=== PATIENT | female | born 1980 | race Caucasian/White ===

== ENCOUNTER 2016-07-12 08:48 | Emergency (ER) | payer OTHER ==
[2016-07-12 08:48] VITALS: BMI 29.5
[2016-07-12 09:15] VITALS: TEMP 98.2; O2SAT 98
--- NOTE | 2016-07-12 09:33 | C.PDOC ---
History Of Present Illness 35 yr old female presents to the ER stating for the past few weeks she feels like she is unable to take a deep breath, sensations of breathlessness, chest tightness and lung pain. Patient reports she is under a lot of stress with her 6 kids, school and various other things. Patient denies fever, nausea, vomiting , vision changes, headache, weakness or numbness. Time Seen by Provider: 07/12/16 09:20 Chief Complaint (Nursing): Flu-like Symptoms History Per: Patient History/Exam Limitations: no limitations Onset/Duration Of Symptoms: Persistent (few weeks) Current Symptoms Are (Timing): Still Present Sick Contacts (Context): None Past Medical History Reviewed: Historical Data, Nursing Documentation, Vital Signs Vital Signs: Last Vital Signs Temp 98.2 F 07/12/16 09:14 Pulse 69 07/12/16 10:14 Resp 18 07/12/16 10:14 BP 124/72 07/12/16 10:14 Pulse Ox 98 07/12/16 10:34 - Medical History PMH: Migraine - [facility] Procedures MONITORING NOS (02/05/14) INFLUENZA VACCINATION (02/05/14) MANUAL ASSIST DELIV NEC (02/05/14) OTHER SKIN & SUBQ I D (04/19/14) Family History: States: No Known Family Hx - Social History Hx Tobacco Use: Yes Hx Alcohol Use: No Hx Substance Use: No - Immunization History Hx Tetanus Toxoid Vaccination: Yes Review Of Systems Except As Marked, All Systems Reviewed And Found Negative. Constitutional: Negative for: Fever Eyes: Negative for: Vision Change Respiratory: Positive for: Other (Sensations of breathlessness. Can't take a deep breath. Chest tightness. Lung pain. ) Gastrointestinal: Negative for: Nausea, Vomiting Neurological: Negative for: Weakness, Numbness, Headache Physical Exam - Physical Exam Appears: Non-toxic, No Acute Distress Skin: Warm, Dry, No Rash Head: Atraumatic, Normacephalic Oral Mucosa: Moist Chest: Symmetrical, No Tenderness Cardiovascular: Rhythm Regular, No Murmur Respiratory: Normal Breath Sounds, No Rales, No Rhonchi, No Stridor, No Wheezing Gastrointestinal/Abdominal: Normal Exam, Soft, No Tenderness, No Guarding, No Rebound Back: Normal Inspection, No CVA Tenderness Extremity: Normal ROM, No Swelling Neurological/Psych: Oriented x3, Normal Speech, Normal Motor ED Course And Treatment ECG: Interpreted By Me ECG Rhythm: Sinus Rhythm ECG Interpretation: Normal Rate From EC (BPM) O2 Sat by Pulse Oximetry: 98 (RA) - Radiology CXR: Interpreted by Me, Viewed By Me CXR Interpretation: Yes: No Acute Disease Medical Decision Making Medical Decision Making: PLAN: * CXR * EKG Normal results discussed with pt, no indication of acs pe or tad Discussed anxiety as cause with pt who was thinking the same as she has multiple social problems Pt advised to make an apt at [facility] for further evaluation and treatment Disposition Counseled Patient/Family Regarding: Diagnosis, Need For Followup - Disposition Referrals: Clinic,Med Surg [Primary Care Provider] - Disposition: HOME/ ROUTINE Disposition Time: 10:05 Condition: GOOD Additional Instructions: Make apt with "[facility]" or you PCP Instructions: Generalized Anxiety Disorder (ED) Forms: Work Excuse - Clinical Impression Clinical Impression: Anxiety - Scribe Statement The provider has reviewed the documentation as recorded by the Scribe Naz Coronado Provider Attestation: All medical record entries made by the Scribe were at my direction and personally dictated by me. I have reviewed the chart and agree that the record accurately reflects my personal performance of the history, physical exam, medical decision making, and the department course for this patient. I have also personally directed, reviewed, and agree with the discharge instructions and disposition.
--- NOTE | 2016-07-12 09:49 | RAD ---
HISTORY: cp COMPARISON: 05/02/2013 TECHNIQUE: Chest PA and lateral FINDINGS: LUNGS: No active pulmonary disease. PLEURA: No significant pleural effusion identified. No pneumothorax apparent. CARDIOVASCULAR: Normal. OSSEOUS STRUCTURES: No significant abnormalities. VISUALIZED UPPER ABDOMEN: Normal. OTHER FINDINGS: None. IMPRESSION: No active disease. No interval pathology noted
[2016-07-12 10:15] VITALS: BP 124/72; PULSE 69; RESP 18
== END 2016-07-12 10:15 | disposition home or self-care (01) ==
LOC: SUPCPDRO 08:48 → C.ER 08:48
DX: F41.9 Anxiety disorder, unspecified (principal)

== ENCOUNTER 2016-07-25 14:59 | Emergency (ER) | payer OTHER ==
[2016-07-25 15:00] VITALS: BMI 29.5
[2016-07-25 15:42] VITALS: PULSE 110; RESP 20; TEMP 98.5; O2SAT 99
--- NOTE | 2016-07-25 16:21 | C.PDOC ---
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 Patient reports she had a anxiety attack today at school which prompted the ED visit. Patient states she recently had few episodes in increasing severity. Patient describes it as the whole world closing in on her, darkness and gets tearful. Patient states there is a lot of things going on in nursing school and has a lot of kids at home which she has to deal with alone. Patient states she has tried getting an appointment at the [facility] across the street but had no luck. Patient denies fever, chills, chest pain, SOB, nausea, vomiting, abdominal pain, headache, weakness or numbness. 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), Persistent Current Symptoms Are (Timing): Gone Associated Symptoms: Anxiety Past Medical History Reviewed: Historical Data, Nursing Documentation, Vital Signs Vital Signs: Last Vital Signs Temp 98.5 F 07/25/16 15:40 Pulse 110 H 07/25/16 15:40 Resp 20 07/25/16 15:40 BP Pulse Ox 99 07/25/16 16:21 - Medical History PMH: Migraine - [facility] Procedures MONITORING NOS (02/05/14) INFLUENZA VACCINATION (02/05/14) MANUAL ASSIST DELIV NEC (02/05/14) OTHER SKIN & SUBQ I D (04/19/14) Family History: States: No Known Family Hx - Social History Hx Tobacco Use: Yes Hx Alcohol Use: No Hx Substance Use: No - Immunization History Hx Tetanus Toxoid Vaccination: Yes Hx Influenza Vaccination: No Hx Pneumococcal Vaccination: No Review Of Systems Except As Marked, All Systems Reviewed And Found Negative. Constitutional: Negative for: Fever, Chills Cardiovascular: Negative for: Chest Pain Respiratory: Negative for: Shortness of Breath Gastrointestinal: Negative for: Nausea, Vomiting, Abdominal Pain Neurological: Negative for: Weakness, Numbness, Headache Physical Exam - Physical Exam Appears: Well, Non-toxic, No Acute Distress Skin: Warm, Dry, No Rash Head: No Atraumatic, No Normacephalic Oral Mucosa: Moist Throat: Normal, No Erythema, No Exudate Chest: Symmetrical, No Tenderness Cardiovascular: Rhythm Regular, No Murmur Respiratory: Normal Breath Sounds, No Rales, No Rhonchi, No Stridor, No Wheezing Gastrointestinal/Abdominal: Normal Exam, Soft, No Tenderness, No Guarding, No Rebound Extremity: Normal ROM, No Swelling Neurological/Psych: Oriented x3, Normal Speech, Normal Motor ED Course And Treatment O2 Sat by Pulse Oximetry: 99 Progress Note: Crisis was informed about angi patient and they tried to get the patient an appointment with [facility] but none available. Patient is put in touch with the manager strategic development of [facility]. Disposition Counseled Patient/Family Regarding: Diagnosis, Need For Followup, Rx Given - Disposition Disposition: HOME/ ROUTINE Disposition Time: 16:17 Condition: GOOD Additional Instructions: Call [phone] and speak with Jose E, the manager strategic development. He will be able to assist. Take Ativan for anxiety as needed. Do not drive or attempt to take classes under the influence of Ativan. Prescriptions: Lorazepam [Ativan] 1 tab PO BID PRN #6 tab PRN Reason: Anxiety Instructions: Anxiety (ED) Forms: General Discharge Instructions, Work Excuse - POA Present On Arrival: None - Clinical Impression Clinical Impression: Anxiety - Scribe Statement The provider has reviewed the documentation as recorded by the Scribe Naz Coronado Provider Attestation: All medical record entries made by the Scribe were at my direction and personally dictated by me. I have reviewed the chart and agree that the record accurately reflects my personal performance of the history, physical exam, medical decision making, and the department course for this patient. I have also personally directed, reviewed, and agree with the discharge instructions and disposition.
== END 2016-07-25 16:27 | disposition home or self-care (01) ==
LOC: C.ER 14:59
DX: F41.9 Anxiety disorder, unspecified (principal)

== ENCOUNTER 2016-12-01 19:30 | Emergency (ER) | payer OTHER ==
[2016-12-01 19:30] VITALS: BMI 29.5
[2016-12-01 19:44] VITALS: BP 117/83; PULSE 73; RESP 20; TEMP 97.6; O2SAT 99
[2016-12-01] MEDS ORDERED: Tramadol 25 mg PO STA (20:17)
--- NOTE | 2016-12-01 20:24 | C.PDOC ---
History Of Present Illness 36 y/o female c/o pain to her right elbow, radiating to right fingers, with associated tingling sensation for 2 weeks. Patient states pain originally started in right shoulder but is now localized to right elbow area. Denies trauma, weakness, numbness. Notes she took Tylenol w/ no relief. Patient also states she uses her hands a lot at work. Time Seen by Provider: 12/01/16 20:04 Chief Complaint (Nursing): Upper Extremity Problem/Injury History Per: Patient History/Exam Limitations: no limitations Onset/Duration Of Symptoms: Days Current Symptoms Are (Timing): Still Present Quality: "Pain" Exacerbating Factor(s): Movement Recent travel outside of the [place]: No Past Medical History Reviewed: Historical Data, Nursing Documentation, Vital Signs Vital Signs: Last Vital Signs Temp 97.6 F 12/01/16 19:40 Pulse 73 12/01/16 19:40 Resp 20 12/01/16 19:40 BP 117/83 12/01/16 19:40 Pulse Ox 99 12/01/16 20:35 - Medical History PMH: Migraine - [facility] Procedures MONITORING NOS (02/05/14) INFLUENZA VACCINATION (02/05/14) MANUAL ASSIST DELIV NEC (02/05/14) OTHER SKIN & SUBQ I D (04/19/14) Family History: States: Unknown Family Hx - Social History Hx Tobacco Use: Yes Hx Alcohol Use: No Hx Substance Use: No - Immunization History Hx Tetanus Toxoid Vaccination: Yes Hx Influenza Vaccination: No Hx Pneumococcal Vaccination: No Review Of Systems Except As Marked, All Systems Reviewed And Found Negative. Constitutional: Negative for: Fever, Chills Musculoskeletal: Positive for: Other (Elbow Pain, Right) Skin: Negative for: Rash Neurological: Negative for: Weakness, Numbness Physical Exam - Physical Exam Appears: Non-toxic, No Acute Distress Skin: Normal Color, Warm, Dry Head: Atraumatic, Normacephalic Extremity: Capillary Refill (< 2 sec.), No Deformity, No Swelling, Other (Pain on ROM of right elbow. Skin intact: no erythema or effusion of joint. ) Extremity: Bilateral: Normal Color And Temperature Pulses: Left Radial: Normal, Right Radial: Normal Neurological/Psych: Oriented x3, Normal Motor, Normal Sensation ED Course And Treatment O2 Sat by Pulse Oximetry: 99 (RA) Pulse Ox Interpretation: Normal Progress Note: Treated with Tramadol PO. Sling placed for support. On reassessment, patient is resting comfortably, and is in no acute distress. Patient instructed to follow up with clinic/PMD within 1-2 days. Disposition Counseled Patient/Family Regarding: Diagnosis, Need For Followup, Rx Given - Disposition Referrals: Ankit Daily MD [Staff Provider] - Disposition: HOME/ ROUTINE Disposition Time: 20:21 Condition: STABLE Additional Instructions: Please follow up with PMD Take tramadol PO Return to ER if worse Prescriptions: traMADol [Ultram] 50 mg PO TID #14 tab Instructions: Tendinitis (ED) Forms: [employer] (Syrian) - Clinical Impression Clinical Impression: Tendinitis of elbow - PA / [employer] / Resident Statement MD/DO has reviewed & agrees with the documentation as recorded. - Scribe Statement The provider has reviewed the documentation as recorded by the Scribe SM All medical record entries made by the Scribe were at my direction and personally dictated by me. I have reviewed the chart and agree that the record accurately reflects my personal performance of the history, physical exam, medical decision making, and the department course for this patient. I have also personally directed, reviewed, and agree with the discharge instructions and disposition.
== END 2016-12-01 20:34 | disposition home or self-care (01) ==
LOC: C.ER 19:30
DX: M77.9 Enthesopathy, unspecified (principal)

== ENCOUNTER 2017-04-11 12:56 | Emergency (ER) | payer OTHER ==
[2017-04-11 12:56] VITALS: BMI 29.5
[2017-04-11 14:24] LABS: BASO # 0.1 K/uL (0.0-0.2); EOS # 0.1 K/uL (0.0-0.7); EOS % 0.8 % (0.0-4.0); HEMATOCRIT 37.7 % (34.0-47.0); LYMPH % 40.2 % (20.0-40.0); MEAN CELL VOLUME 87.1 fL (81.0-99.0); MEAN CORPUSCULAR HEMOGLOBIN 29.1 pg (27.0-31.0); MEAN CORPUSCULAR HGB CONC 33.4 g/dL (33.0-37.0); MEAN PLATELET VOLUME 8.6 fL (7.2-11.7); MONO # 0.4 K/uL (0.0-0.8); MONO % 5.4 % (0.0-10.0); RED CELL DISTRIBUTION WIDTH 13.9 % (11.5-14.5); WHITE BLOOD COUNT 7.5 K/uL (4.8-10.8)
[2017-04-11 14:25] LABS: RBC URINE < 1 /hpf (0-3); URINE BILIRUBIN NEGATIVE (NEGATIVE); URINE BLOOD NEGATIVE (NEGATIVE); URINE COLOR Yellow (YELLOW); URINE GLUCOSE (UA) NORMAL (Normal); URINE KETONE NEGATIVE (NEGATIVE); URINE LEUKOCYTE ESTERASE NEG Leu/uL (Negative); URINE PROTEIN NEGATIVE (NEGATIVE); URINE UROBILINOGEN NORMAL mg/dL (0.2-1.0); WBC URINE 1 /hpf (0-5)
--- NOTE | 2017-04-11 14:28 | C.PDOC ---
History Of Present Illness 36 y/o female with history of acid reflux presents to ED with complaints of chest discomfort when taking deep breaths and acid reflux since 6am this morning. Patient reports x1 episode of vomiting and denies chest pressure, fever , chills, cough, headache, sob or any other complaints at this time. Only discomfort with inhalation Time Seen by Provider: 04/11/17 13:41 Chief Complaint (Nursing): Chest Pain History Per: Patient History/Exam Limitations: no limitations Onset/Duration Of Symptoms: Hrs Current Symptoms Are (Timing): Still Present Quality: Pressure Exacerbating Factors: Deep Breathing Past Medical History Reviewed: Historical Data, Nursing Documentation, Vital Signs Vital Signs: Last Vital Signs Temp 97.9 F 04/11/17 17:07 Pulse 82 04/11/17 17:07 Resp 18 04/11/17 17:07 BP 117/67 04/11/17 17:07 Pulse Ox 98 04/11/17 17:07 - Medical History PMH: Migraine Surgical History: No Surg Hx - [facility] Procedures MONITORING NOS (02/05/14) INFLUENZA VACCINATION (02/05/14) MANUAL ASSIST DELIV NEC (02/05/14) OTHER SKIN & SUBQ I D (04/19/14) Family History: States: No Known Family Hx - Social History Hx Tobacco Use: Yes Hx Alcohol Use: No Hx Substance Use: No - Immunization History Hx Tetanus Toxoid Vaccination: Yes Hx Influenza Vaccination: No Hx Pneumococcal Vaccination: No Review Of Systems Except As Marked, All Systems Reviewed And Found Negative. Cardiovascular: Positive for: Other (Chest discomfort, Acid reflux) Physical Exam - Physical Exam Appears: Non-toxic, No Acute Distress Skin: Normal Color, Warm, Dry, No Rash Head: Atraumatic, Normacephalic Eye(s): bilateral: Normal Inspection Oral Mucosa: Moist Throat: Normal, No Erythema, No Exudate, No Drooling Neck: Supple Chest: Symmetrical Cardiovascular: Rhythm Regular Respiratory: Normal Breath Sounds, No Rales, No Rhonchi, No Wheezing Gastrointestinal/Abdominal: Soft, No Tenderness, No Guarding, No Rebound Extremity: Normal ROM, Capillary Refill (<2 seconds) Neurological/Psych: Oriented x3, Normal Speech Gait: Steady ED Course And Treatment - Laboratory Results Result Diagrams: 04/11/17 14:19 04/11/17 14:19 ECG: Interpreted By Me, Viewed By Me ECG Rhythm: Sinus Rhythm Interpretation Of ECG: Normal Intervals, Normal access. No ST/T wave changes Rate From EC (BPM ) O2 Sat by Pulse Oximetry: 98 (RA) Pulse Ox Interpretation: Normal Progress Note: On re evaluation patient feels better and is requesting prescription because Prilosec is not improving symptoms. Patient will be discharged with Nexium prescription and isntructed to follow up with PMD in 2 days. Patient advised to return to ED if symptoms worsen Reevaluation Time: 16:20 Reassessment Condition: Improved Medical Decision Making Medical Decision Making: Plan: ECG, CXR, Blood work, Protonix ordered Disposition Counseled Patient/Family Regarding: Studies Performed, Diagnosis, Need For Followup, Rx Given - Disposition Referrals: [facility] at [facility] [Outside] Disposition: HOME/ ROUTINE Disposition Time: 16:48 Condition: STABLE Additional Instructions: follow up with medical clinic or your doctor in 2 days call to make an appointment take medications as prescribed return to hospital if symptoms worsens or progress Prescriptions: Esomeprazole Magnesium [Nexium] 40 mg PO DAILY #20 ecc Instructions: Chest Pain (ED), Abdominal Pain (ED) Forms: General Discharge Instructions, [facility] (Iraqi), Work Excuse - Clinical Impression Clinical Impression: Chest pain, Abdominal pain - Scribe Statement The provider has reviewed the documentation as recorded by the Hossein Graves All medical record entries made by the Manuelibfavian were at my direction and personally dictated by me. I have reviewed the chart and agree that the record accurately reflects my personal performance of the history, physical exam, medical decision making, and the department course for this patient. I have also personally directed, reviewed, and agree with the discharge instructions and disposition.
[2017-04-11 14:40] LABS: ALB/GLOB RATIO 1.5 (1.0-2.1); ALKALINE PHOSPHATASE 60 U/L (38-126); ALT/SGPT 121 U/L (9-52); AST/SGOT 47 U/L (14-36); BILIRUBIN,TOTAL 0.6 mg/dL (0.2-1.3); BLOOD UREA NITROGEN 12 mg/dL (7-17); CALCIUM 8.6 mg/dl (8.6-10.4); CARBON DIOXIDE 22 mmol/L (22-30); CHLORIDE 101 mmol/L (98-107); GFR AFRICAN-AMERICAN > 60; GLUCOSE,RANDOM 85 mg/dL (65-105); POTASSIUM 4.1 mmol/L (3.6-5.2); SODIUM 134 mmol/L (132-148); TOTAL PROTEIN 7.2 g/dL (6.3-8.3)
--- NOTE | 2017-04-11 15:10 | RAD ---
PROCEDURE: CHEST RADIOGRAPH, 1 VIEW HISTORY: chest pain COMPARISON: 07/12/2016 FINDINGS: LUNGS: Clear. PLEURA: No pneumothorax or pleural fluid seen. CARDIOVASCULAR: Normal. OSSEOUS STRUCTURES: No significant abnormalities. VISUALIZED UPPER ABDOMEN: Normal. OTHER FINDINGS: None. IMPRESSION: No active disease.
[2017-04-11 15:33] VITALS: BP 117/67; PULSE 82; RESP 18
[2017-04-11 16:50] VITALS: O2SAT 98
[2017-04-11 17:08] VITALS: TEMP 97.9
--- NOTE | 2017-04-12 23:24 | CARD ---
APPROVED REPORT EKG Measurement Heart [id number] OR 130P30 [id number] <Conclusion> Normal sinus rhythm Normal ECG
== END 2017-04-11 17:09 | disposition home or self-care (01) ==
LOC: C.ER 12:56
DX: R07.9 Chest pain, unspecified (principal); R10.9 Unspecified abdominal pain; Z87.891 Personal history of nicotine dependence
CPT/HCPCS: 71010; 80053; 81001; 83690; 84484; 85025; 93005; 96374; 99285; C9113

== ENCOUNTER 2018-03-11 07:17 | Emergency (ER) | payer OTHER ==
[2018-03-11 07:27] VITALS: BMI 31.2
[2018-03-11 07:34] VITALS: TEMP 97.6
[2018-03-11] MEDS ORDERED: Albuterol 0.083% Inhal Sol (2.5 mg/3 mL) UD IH STA (07:49)
[2018-03-11] MEDS ORDERED: Promethazine/Cod 6.25mg-10mg/5ml Syr UD PO STA (07:51)
[2018-03-11] MEDS ORDERED: Albuterol 0.083% Inhal Sol (2.5 mg/3 mL) UD ONE ×2 (07:51→07:53)
--- NOTE | 2018-03-11 07:57 | C.PDOC ---
History Of Present Illness 37 yo female come in for evaluation of cold sx associated with nasal congestion, productive cough with yellow sputum gradually developed for past 3 days. Pt reports, was unab;e to sleep last night due to cough, developed some chest tightness " was unable to breath due to cough". Pt admits, (+) sick contact similar sx family member. Otherwise, pt denies high fever, chills, headache, dizziness, neck pain, drooling, dysphagia, CP, SOB, palpitation, dyspnea, wheezing, abd. pain, N/V/D, UTI sx. Ambulate to Ed for evaluation, not in resp. distress. Time Seen by Provider: 03/11/18 07:38 Chief Complaint (Nursing): Chest Pain History Per: Patient Past Medical History Reviewed: Historical Data, Nursing Documentation, Vital Signs Vital Signs: Last Vital Signs Temp 97.6 F 03/11/18 07:27 Pulse 86 03/11/18 07:41 Resp 19 03/11/18 07:27 BP 141/91 H 03/11/18 07:41 Pulse Ox 99 03/11/18 07:27 - Medical History PMH: Migraine Denies: Chronic Kidney Disease - [facility] Procedures MONITORING NOS (02/05/14) INFLUENZA VACCINATION (02/05/14) MANUAL ASSIST DELIV NEC (02/05/14) OTHER SKIN & SUBQ I D (04/19/14) Family History: States: No Known Family Hx - Social History Hx Tobacco Use: Yes Hx Alcohol Use: Yes Hx Substance Use: No - Immunization History Hx Tetanus Toxoid Vaccination: Yes Hx Influenza Vaccination: No Hx Pneumococcal Vaccination: No Review Of Systems Except As Marked, All Systems Reviewed And Found Negative. Constitutional: Negative for: Fever, Chills ENT: Positive for: Nose Discharge, Nose Congestion. Negative for: Ear Discharge, Throat Pain Cardiovascular: Negative for: Light Headedness Respiratory: Positive for: Cough, Sputum. Negative for: Shortness of Breath, SOB with Excertion, Wheezing Gastrointestinal: Negative for: Nausea, Vomiting, Abdominal Pain, Diarrhea Musculoskeletal: Negative for: Neck Pain Skin: Negative for: Rash Neurological: Negative for: Weakness, Numbness, Headache, Dizziness Physical Exam - Physical Exam Appears: Well, Non-toxic, No Acute Distress, Other (occasional dry cough noted) Skin: Normal Color, Warm, Dry Eye(s): bilateral: PERRL Ear(s): Bilateral: Normal Nose: No Flaring, Discharge (B/L clear) Oral Mucosa: Moist Throat: No Erythema, No Drooling Neck: Trachea Midline, Supple Cardiovascular: Rhythm Regular, No Murmur, No JVD Respiratory: No Decreased Breath Sounds, No Accessory Muscle Use, No Stridor, Wheezing (scattered Right basilar wheezing) Gastrointestinal/Abdominal: Soft, No Tenderness, No Distention, No Guarding Extremity: Normal ROM, No Deformity, No Swelling Neurological/Psych: Oriented x3, Normal Speech ED Course And Treatment ECG: Interpreted By Me, Viewed By Me ECG Rhythm: Sinus Rhythm Interpretation Of ECG: SR@82/min, NAD, no acute T wave or ST-T changes. O2 Sat by Pulse Oximetry: 99 Pulse Ox Interpretation: Normal - Radiology CXR: Interpreted by Me, Viewed By Me, Read By Radiologist CXR Interpretation: Yes: No Acute Disease Progress Note: On re-eval, pt is afebrile, hemodynamicay stable. Pt reports, " feels much better after ED treatment". Non-toxic, not in resp. distress. PulseOx 99% RA. ENT: no acute findings. Lungs: CTA B/L, BS equal B/L. Abd: benign, (-) guarding, (-) rebound. back: (-) CVA tenderness. CXR- normal study. Pt has clinical findings c/w acute asthma bronchitis. Pt advised. ref. to f/u with PMD in 2-3 days for re-eval. return to ED if any worsening or new changes. Disposition Counseled Patient/Family Regarding: Studies Performed, Diagnosis, Need For Followup, Rx Given - Disposition Referrals: Basim Woodson MD [Medical Doctor] - Disposition: HOME/ ROUTINE Disposition Time: 08:46 Condition: STABLE Additional Instructions: Encourage fluids Take medication as prescribed Follow up with PMD in 2-3 days for re-evaluation. return if any worsening or new changes. Prescriptions: Albuterol HFA [Ventolin HFA 90 mcg/actuation (8 g)] 1 puff IH Q6 #1 inhaler Azithromycin [Zithromax] 250 mg PO DAILY #4 tab Prednisone [Deltasone] 40 mg PO DAILY #6 tablet Promethazine/Codeine [Phenergan/Codeine Oral Syrup] 10 ml PO Q6 #100 ml Instructions: Asthma, Adult (DC), Acute Bronchitis Forms: [facility] (Polish) - Clinical Impression Clinical Impression: Bronchitis, Asthma
[2018-03-11] MEDS ORDERED: Promethazine/Cod 6.25mg-10mg/5ml Syr UD ONE (07:59)
--- NOTE | 2018-03-11 08:55 | RAD ---
Chest x-ray two views History: Cough. Comparison: None available. Findings: No focal infiltrate or effusion. Heart size within limits. Right hilar prominence. Bibasilar breast and nipple shadows. Impression: No focal infiltrate or effusion.
[2018-03-11 09:57] VITALS: BP 116/80; PULSE 82; RESP 17; O2SAT 96
--- NOTE | 2018-03-12 12:17 | CARD ---
APPROVED REPORT Date of service: 03/11/2018 EKG Measurement Heart [id number] 128P19 [id number] <Conclusion> Normal sinus rhythm Normal ECG
== END 2018-03-11 09:30 | disposition home or self-care (01) ==
LOC: C.ER 07:17
DX: J45.909 Unspecified asthma, uncomplicated (principal)

== ENCOUNTER 2018-07-22 23:14 | Emergency (ER) | payer OTHER ==
[2018-07-22 23:14] VITALS: BMI 29.5
[2018-07-22 23:22] VITALS: RESP 16
--- NOTE | 2018-07-23 00:03 | C.PDOC ---
History Of Present Illness 37 year old female with PMHx of anxiety and panic attacks presents to the ED c/o palpitations and anxiety. Patient reports over the weekends she was drinking heavily with her girlfriends at [employer]. Patient denies headache, CP, SOB, rash, weakness, numbness. Time Seen by Provider: 07/22/18 23:33 Chief Complaint (Nursing): Palpitations History Per: Patient History/Exam Limitations: no limitations Onset/Duration Of Symptoms: Days Current Symptoms Are (Timing): Still Present Recent travel outside of the [place] States: No Additional History Per: Patient Past Medical History Reviewed: Historical Data, Nursing Documentation, Vital Signs Vital Signs: Last Vital Signs Temp 98.3 F 07/22/18 23:18 Pulse 115 H 07/22/18 23:18 Resp 16 07/22/18 23:18 BP Pulse Ox 97 07/22/18 23:18 - Medical History PMH: Anxiety, Migraine Denies: Chronic Kidney Disease Surgical History: No Surg Hx - [facility] Procedures MONITORING NOS (02/05/14) INFLUENZA VACCINATION (02/05/14) MANUAL ASSIST DELIV NEC (02/05/14) OTHER SKIN & SUBQ I D (04/19/14) Family History: States: Unknown Family Hx - Social History Hx Tobacco Use: Yes Hx Alcohol Use: Yes Hx Substance Use: No - Immunization History Hx Tetanus Toxoid Vaccination: Yes Hx Influenza Vaccination: No Hx Pneumococcal Vaccination: No Review Of Systems Constitutional: Negative for: Fever, Chills Eyes: Negative for: Vision Change Cardiovascular: Positive for: Palpitations. Negative for: Chest Pain Respiratory: Negative for: Cough, Shortness of Breath Gastrointestinal: Negative for: Nausea, Vomiting, Abdominal Pain Skin: Negative for: Rash Neurological: Negative for: Weakness, Numbness, Headache Psych: Positive for: Anxiety Physical Exam - Physical Exam Appears: Non-toxic, No Acute Distress, Other (Anxious, obese female ) Skin: Normal Color, Warm, Dry Head: Atraumatic, Normacephalic Eye(s): bilateral: Normal Inspection, PERRL, EOMI Oral Mucosa: Moist Neck: Normal ROM, Supple Chest: Symmetrical Cardiovascular: Rhythm Regular Respiratory: Normal Breath Sounds, No Rales, No Rhonchi, No Wheezing Gastrointestinal/Abdominal: Soft, No Tenderness, No Guarding, No Rebound Extremity: Normal ROM, No Tenderness, No Swelling Neurological/Psych: Oriented x3, Normal Speech, Normal Cognition Gait: Steady ED Course And Treatment O2 Sat by Pulse Oximetry: 97 (ON RA) Pulse Ox Interpretation: Normal Medical Decision Making Medical Decision Making: Plan: * EKG * Librium 50 mg PO * Xanax 0.25 mg PO binge drinking alcohol abuse mild w/d s/s. improved with Xanax/Librium Disposition Doctor Will See Patient In The: Office Counseled Patient/Family Regarding: Studies Performed, Diagnosis - Disposition Disposition: HOME/ ROUTINE Disposition Time: 00:47 Condition: GOOD Forms: [facility] (Amharic) - Clinical Impression Clinical Impression: Palpitations, Alcohol withdrawal - Scribe Statement The provider has reviewed the documentation as recorded by the Scribe Chris Servin All medical record entries made by the Scribe were at my direction and personally dictated by me. I have reviewed the chart and agree that the record accurately reflects my personal performance of the history, physical exam, medical decision making, and the department course for this patient. I have also personally directed, reviewed, and agree with the discharge instructions and disposition.
[2018-07-23 01:00] VITALS: BP 110/69; PULSE 86; TEMP 98.8; O2SAT 99
--- NOTE | 2018-07-24 20:43 | CARD ---
APPROVED REPORT Date of service: 07/22/2018 EKG Measurement Heart [id number] <Conclusion> Sinus tachycardia Nonspecific ST abnormality Abnormal ECG
== END 2018-07-23 01:21 | disposition home or self-care (01) ==
LOC: C.ER 23:14
DX: R00.2 Palpitations (principal); F10.239 Alcohol dependence with withdrawal, unspecified; Y90.9 Presence of alcohol in blood, level not specified